=== PATIENT | female | born 2005 | race Two or more races ===

== ENCOUNTER → 2025-04-04 | Outpatient (CLI) | payer MEDICAID, SELFPAY ==
--- NOTE | 2025-04-04 16:15 | XR_ITS ---
Examination: Retroperitoneal ultrasound, complete Technique: Multiple high resolution grayscale images of the retroperitoneum obtained, including kidneys and bladder. Exam date and time: April 04, 2025, 1614 hours INDICATIONS: Diagnosis chronic kidney disease this week with proteinuria FINDINGS: Right kidney 9.8 cm renal cortex 1.8 cm Left kidney 10.2 cm renal cortex 1.6 cm No hydronephrosis or renal calculi No bladder mass or bladder calculi, bladder prevoid volume 543 cc IMPRESSION: No hydronephrosis or renal calculi
== END | disposition home or self-care (01) ==
LOC: CDIM 15:52
PROVIDERS: PCP Nurse Practitioner Primary Care; Referring Provider Nurse Practitioner Primary Care; Visit Provider Nurse Practitioner Primary Care
DX: N18.9 Chronic kidney disease, unspecified (principal); R80.9 Proteinuria, unspecified
CPT/HCPCS: 76770